=== PATIENT | female | born 1940 | race Caucasian/White ===

== ENCOUNTER 2017-05-02 12:53 | Inpatient (IN) ==
[2017-05-02 14:31] LABS: MANUAL DIFF NEEDED? NO
[2017-05-02 14:33] LABS: BASO% 0.3 % (0.0-0.8); EOS# 0.12 X1000 (0.0-0.7); EOS% 0.9 % (0.0-10.0); HEMATOCRIT 37.4 % (37.0-47.0); HEMOGLOBIN 12.3 g/dL (12.0-16.0); IMM GRAN# 0.02 X1000 (0.0-0.04); IMM GRAN% 0.1 % (0.0-0.5); LYMPH# 1.26 X1000 (1.2-3.4); MCH 33.3 PG (27-31); MCHC 32.9 g/dL (33-37); MCV 101.4 FL (81-99); MONO# 1.24 X1000 (0.11-0.59); MONO% 8.8 % (1.7-9.3); MPV 9.1 FL (7.4-10.4); NEUT% 80.9 % (42.2-75.2); PLT 301 X1000 (130-400); RBC 3.69 XMIL (4.2-5.4)
[2017-05-02 14:42] LABS: AGAP 12; ALBUMIN 3.5 g/dL (3.5-5.0); ALKALINE PHOSPHATASE 97 U/L (32-104); BUN 25 mg/dL (8-22); CHLORIDE 98 mmol/L (98-107); COSMO 279; GOT 11 U/L (10-30); GPT 9 U/L (10-36); POTASSIUM 4.5 mmol/L (3.5-5.1); SODIUM 137 mmol/L (136-145); TCO2 27 mmol/L (25-35); TOTAL PROTEIN 7.4 g/dL (6.3-8.3)
[2017-05-02 15:57] LABS: BE 2.6 mmoll (-3.0-3.0); BLOOD TYPE ARTERIAL; DRAW SITE L BRACHIAL; METHB 1.6 % (0.0-1.5); O2(CT) 16.3 mL/dL (15.0-23.0); PCO2(98.6) 45 mmHg (35-45); PO2(98.6) 126 mmHg (60-100); SAMPLE BLOOD; SAO2 98.5 % (95.0-100.0)
[2017-05-02 16:01] LABS: ALLEN TEST NO; MODALITY CANNULA
[2017-05-02] MEDS ORDERED: NS 1,000 ML IV ONE (16:11)
[2017-05-02] MEDS ORDERED: ZOFRAN IV PRN (17:58)
[2017-05-02] MEDS ORDERED: RESTORIL PO PRN (18:01)
[2017-05-02] MEDS ORDERED: NS 1,000 ML IV SCH (18:03)
[2017-05-02] MEDS: ROCEPHIN 1 GM in NS 50 ML IV SCH (19:33)
[2017-05-02] MEDS: NORCO-10 PO PRN (19:33)
[2017-05-02] MEDS: LOVENOX SUBQ SCH (19:33)
[2017-05-02 19:57] LABS: BILIRUBIN URINE NEGATIVE (NEGATIVE); BLOOD URINE 1+ (NEGATIVE); CLARITY VERY CLOUDY (CLEAR); COLOR YELLOW; GLUCOSE URINE NEGATIVE (NEGATIVE); LEUKOCYTES URINE 1+ (NEGATIVE); NITRITE URINE NEGATIVE (NEGATIVE); PH URINE 6.5; PROTEIN URINE 2+(100 mg/dL) mg/dL (NEGATIVE); SP GRAVITY URINE 1.015; UROBILINOGEN URINE 1+(1 mg/dL)
[2017-05-02 20:06] LABS: URINE EPITHELIAL CELLS <10 /HPF (<10); URINE RBC <10 /HPF (<10)
[2017-05-02 20:07] LABS: URINE CULTURE PL NEEDED? YES
[2017-05-02 20:08] LABS: URINE CAST NONE SEEN /LPF; URINE CRYSTAL NONE SEEN /HPF; URINE SOURCE CATH
[2017-05-02] MEDS: LYRICA PO SCH (21:38)
[2017-05-03] MEDS: NORCO-10 PO PRN ×4 (02:23→21:29)
[2017-05-03 06:18] LABS: AGAP 9; ALBUMIN 2.7 g/dL (3.5-5.0); ALKALINE PHOSPHATASE 78 U/L (32-104); BUN 21 mg/dL (8-22); CALCIUM 8.3 mg/dL (8.8-10.2); CHLORIDE 103 mmol/L (98-107); COSMO 275; GOT 10 U/L (10-30); GPT 7 U/L (10-36); MAGNESIUM 1.9 mg/dL (1.5-2.7); SODIUM 137 mmol/L (136-145); TCO2 25 mmol/L (25-35); TOTAL PROTEIN 6.7 g/dL (6.3-8.3)
[2017-05-03] MEDS ORDERED: LOMOTIL PO PRN (06:37)
[2017-05-03] MEDS ORDERED: NITROGLYCERIN SL PRN (06:37)
[2017-05-03 06:45] LABS: HEMATOCRIT 33.6 % (37.0-47.0); HEMOGLOBIN 10.4 g/dL (12.0-16.0); MCH 32.2 PG (27-31); MPV 8.7 FL (7.4-10.4); RBC 3.23 XMIL (4.2-5.4)
[2017-05-03] MEDS ORDERED: PRILOSEC PO SCH ×2 (07:00→09:00)
[2017-05-03] MEDS: LYRICA PO SCH ×2 (08:54→21:29)
[2017-05-03] MEDS: ISOPTIN SR PO SCH (08:55)
[2017-05-03] MEDS: ASPIRIN PO SCH (08:55)
[2017-05-03] MEDS: LIDODERM TOP SCH (08:56)
[2017-05-03] MEDS: ROCEPHIN 1 GM in NS 50 ML IV SCH (18:24)
[2017-05-03] MEDS: LOVENOX SUBQ SCH (18:25)
[2017-05-03] MEDS ORDERED: LIPITOR PO SCH (21:00)
[2017-05-03] MEDS ORDERED: ELAVIL PO SCH (21:00)
[2017-05-04] MEDS: NORCO-10 PO PRN ×2 (04:38→10:52)
[2017-05-04] MEDS ORDERED: PRILOSEC PO SCH (07:00)
[2017-05-04 07:29] VITALS: BP 121/69
[2017-05-04] MEDS: ASPIRIN PO SCH (09:37)
[2017-05-04] MEDS: LYRICA PO SCH (09:38)
[2017-05-04] MEDS: ISOPTIN SR PO SCH (09:38)
[2017-05-04] MEDS: LIDODERM TOP SCH (09:38)
[2017-05-04] MEDS ORDERED: KEFLEX PO SCH (21:00)
== END 2017-05-04 14:45 | disposition home or self-care (01) ==
LOC: P.ED 12:53 → P.MEDSURG 12:53 → OBSVTOIN 17:09 → SUATTDRO 17:09
PROVIDERS: ATTEND Internal Medicine